=== PATIENT | female | born 1940 | race Caucasian/White ===

== ENCOUNTER 2025-04-13 23:06 | Inpatient (IN) | payer MEDICARE, OTHER, SELFPAY ==
--- NOTE | 2025-04-13 17:27 | ED.GENMED ---
History of Present Illness
General
Chief Complaint: Abdominal Symptoms
Time Seen by Provider: 04/13/25 17:27
History of Present Illness
History of Present Illness:
FOCUSED PAST MEDICAL HISTORY
- No old records available for review in [facility]
REVIEW OF OLD RECORDS
- No old records available for review in [facility]
Note:
CHIEF COMPLAINT(S)
Sudden onset of nausea, vomiting, and chills.
HISTORY OF PRESENT ILLNESS
The patient is an 84-year-old female with a history of htg-rvsjpmm-kydsadcjy diabetes mellitus. Approximately 10 minutes prior to calling emergency services, she experienced a sudden onset of nausea, vomiting, and chills. She was reported to have
been feeling fine throughout the day. Per the family, there were no other individuals in the home who were unwell. The patient also vomited prior to the arrival of EMS; the vomit did not contain any blood or coffee ground-like material but had some
blood partially, reportedly seen by a family member. On arrival, her oxygen saturation was at 90% without supplemental oxygen, which improved to 98% on 4 liters of oxygen. Upon evaluation in the facility, the patient was found to be febrile, with a
record temperature of 102.5�F. Physical examination noted some faint crackles at the left lung base, heard posteriorly, but no evidence of cellulitis was observed. A computed tomography (CT) scan of the chest was planned, and oral acetaminophen was
to be administered for fever management. The patient primarily speaks Ugandan, and further discussion with the family was pending their arrival.
ADDITIONAL HISTORY OBTAINED FROM SOURCES OTHER THAN THE PATIENT
According to the family, the patient had sudden onset symptoms about 10 minutes prior to calling for emergency assistance. EMS documented some blood partially observed in the vomit but confirmed no coffee ground-like material.
CHRONIC MEDICAL CONDITIONS SIGNIFICANTLY AFFECTING CARE
Rmy-xczdxdi-pyvxlkiyf diabetes mellitus.
REVIEW OF SYSTEMS
- General: Sudden onset of chills. Febrile.
- Respiratory: Shortness of breath with initial low oxygen saturation.
- Gastrointestinal: Nausea and vomiting without coffee ground-like material but with partial blood, as per family.
PHYSICAL EXAM
General: Alert, appears generally weak and debilitated but does not necessarily appear uncomfortable
Skin: Warm, dry, no evidence of cellulitis.
Head: Normocephalic, atraumatic.
Neck: Supple, trachea midline.
Eyes, Ears, Nose, and Throat: Oral mucosa moist.
Cardiovascular: Normal peripheral perfusion, No edema.
Respiratory: Respirations are non-labored, faint crackles at the left lung base heard posteriorly.
Gastrointestinal: Abdomen nondistended. Soft abdomen.
Back: Normal range of motion, normal alignment.
Musculoskeletal: Normal range of motion, normal strength.
Neurological: No focal neurologic deficit, moving all extremities, she was able to walk with assistance to the bedside commode
Psychiatric: Cooperative, appropriate mood and affect.
PLAN
- Order a CT scan of the chest to assess for any underlying pathology.
- Administer oral acetaminophen to manage fever.
- Monitor oxygen saturation and adjust supplemental oxygen as needed.
DIFFERENTIAL DIAGNOSIS
The Differential Diagnosis includes, in no particular order and is not limited to:
1. Pneumonia
2. Acute bronchitis
3. Urinary tract infection
4. Gastroenteritis
5. Sepsis
6. Heart failure exacerbation
7. Pulmonary embolism
8. Acute coronary syndrome
9. Viral infection
10. Aspiration pneumonia
Disposition:
SUMMARY OF ENCOUNTER
The patient, an 84-year-old female with a history of zkh-grnjbsk-uqyxztxsg diabetes mellitus, presented to the emergency department with a sudden onset of nausea, vomiting, and chills. Upon arrival, she was found to be febrile with a temperature of
102.5�F. Initial oxygen saturation was 88% on room air, which improved to 97% with supplemental oxygen at 2 meters. The patient had two episodes of diarrhea earlier in the day, followed by sudden vomiting and chills in the late afternoon. There were
faint crackles noted in the left lung base, prompting the need for a chest x-ray to assess for possible pneumonia or other respiratory pathology. A urine sample was requested to rule out a urinary tract infection.
ASSESSMENT
The patient is experiencing symptoms that could be due to an infectious process, possibly pneumonia, gastroenteritis, or a urinary tract infection, given the fever, chills, gastrointestinal symptoms, and respiratory findings.
PLAN
Order a chest x-ray and obtain a urine sample. Continue to monitor the patients oxygen saturation and adjust supplemental oxygen as needed. Administer acetaminophen to manage fever.
INDEPENDENT REVIEW OF LABS AND INTERPRETATION OF TESTS
My independent review of the patients vital signs indicates fever and initial low oxygen saturation, suggesting a possible infection or respiratory issue.
PATIENT EDUCATION AND COUNSELING
The patients family was informed about her fever and potential causes of her symptoms. They were advised on the importance of monitoring the patients condition and reporting any worsening symptoms.
MEDICAL DECISION MAKING
-Complexity of Data Reviewed: Chronic conditions affecting care include dvf-dlvzexl-kdkzmvkwt diabetes mellitus. Differential diagnosis includes pneumonia, acute bronchitis, urinary tract infection, gastroenteritis, sepsis, heart failure
exacerbation, pulmonary embolism, acute coronary syndrome, viral infection, and aspiration pneumonia.
-Data:
Category 1: Clinical information was obtained from an independent historian.
Category 2: My independent interpretation is pending due to awaiting chest x-ray results.
DIAGNOSIS
1. Fever, unspecified (ICD-10: R50.9)
2. Vomiting, unspecified (ICD-10: R11.10)
3. Shortness of breath (ICD-10: R06.02)
RADIOLOGY
- CAT scan of the abdomen pelvis shows moderate biliary and gallbladder distention with signs of mild acute ileocolitis
LABS
- COVID-negative, urinalysis no UTI, lactic 1.3, sodium slightly low at 127 and of note patient on hydrochlorothiazide, white count 8.5, hemoglobin 9.8
The patient is somewhat ill-appearing. She arrived febrile after having episodes of diarrhea than vomiting. She currently has no abdominal pain but continues to feel weak. She remains tachycardic. Tylenol was given for the fever and she was also
given IV fluids. We also gave Zofran. Chest x-ray shows some mild diffuse ground glass opacities and she was hypoxic as low as 88% on room air however did not read shortness of breath. CT imaging showed moderate biliary and gallbladder distention
of uncertain significance. COVID and flu negative. Lactic normal. Blood cultures pending. She was unable to provide a clean stool specimen as the specimen was mixed with urine.
Phy Exam
Physical Exam
Physical Exam:
See HPI
Sepsis
Sepsis Screening
Sepsis Assessment: Sepsis
Sepsis Screen
Sepsis Screen: Sepsis
Date: 04/13/25
Time: 22:58
Course
Orders/Labs/Results
Orders:
Orders
04/13/25 17:32
Straight cath- Treatment ONCE
0.9% Sodium Chloride 500 ml [Nss] 500 ml IV BOLUS
Acetaminophen [Tylenol] 1,000 mg PO NOW STA
04/13/25 17:36
EKG [Electrocardiogram (*1)] Urgent
Reason for Study: Tachycardia
EKG- Treatment ONCE
04/13/25 17:51
COVID-19 Antigen Urgent
Source: Nasal Swab
Urinalysis Reflex To Culture Urgent
Date Specimen was Collected: 04/13/25
Time Specimen was Collected: 17:50
Urine Microscopic Reflex Cult Urgent
Influenza A+B Rapid Molecular Urgent
KIKA Source: Nasal Swab
Specimen Description:
04/13/25 18:07
Blood Culture Q30M
KIKA Source: Blood/Venous
Specimen Description:
04/13/25 18:09
Complete Blood Count/With Diff Urgent
Lactic Acid Q4H
Comment: CANCEL 2nd LACTIC ACID IF 1st LACTIC ACID IS LESS THAN 2
Blood Culture Q30M
KIKA Source: Blood/Venous
Specimen Description:
04/13/25 18:47
Basic Metabolic Panel Urgent
Lipase Urgent
Comment: ADD ON
04/13/25 19:59
CR Chest - 2 Views Urgent
Comment:
Reason For Exam: fever
04/13/25 20:00
CT Abd/pelvis W Iv Cont Urgent
Comment:
Reason For Exam: vomit fever
04/13/25 21:15
Add On- LAB Urgent
Tests Added?: LFTs and lipase
04/13/25 22:03
STOOL [C difficile Antigen & Toxins] Urgent
KIKA Source: Feces/Stool
Specimen Description:
Stool Culture Urgent
KIKA Source: Feces/Stool
Specimen Description:
04/13/25 22:06
Ondansetron Injectable [Zofran] 4 mg IV NOW STA
04/13/25 22:44
Pgiso-Igfw-Okbsoml Urgent
04/13/25 22:49
Norovirus by PCR Routine
KIKA Source: Feces/Stool
Specimen Description:
Abnormal Lab Results
04/13/25 04/13/25 04/13/25
17:51 18:09 18:47
RBC 3.54 L 10^6/uL
(4.20-5.40)
Hgb 9.8 L g/dL
(12.0-16.0)
Hct 30.0 L %
(37.0-47.0)
MCHC 32.7 L g/dL
(33.0-37.0)
MPV 12.2 H fL
(7.4-10.4)
Abs Immat Gran (auto) 0.1 H 10^3/uL
(0-0.05)
Absolute Neuts (auto) 7.4 H 10^3/uL
(1.4-6.5)
Absolute Lymphs (auto) 0.3 L 10^3/uL
(1.2-3.4)
Absolute Monos (auto) 0.7 H 10^3/uL
(0.1-0.6)
Immature Gran % 1.3 H %
(0-0.5)
Neutrophils % 86.6 H %
(42.2-75.2)
Lymphocytes % 3.8 L %
(20.5-51.1)
Sodium 127 L mmol/L
(135-145)
Chloride 96 L mmol/L
(98-107)
BUN 25 H mg/dl
(7-17)
Glucose 150 H mg/dl
(70-99)
Urine Bacteria (Reflex) Few A
(Negative)
Urine Albumin (Reflex) 1+ A
(Neg - Trace)
04/13/25 18:09
04/13/25 18:47
Vital Signs
Initial and Last Documented VS:
Initial Vital Signs
Temp Pulse Resp BP Pulse Ox
39.1 C H 113 16 157/68 93
04/13/25 17:29 04/13/25 17:29 04/13/25 17:29 04/13/25 17:29 04/13/25 17:29
Last Documented Vital Signs
Temp Pulse Resp BP Pulse Ox
37.7 C 112 27 156/59 96
04/13/25 20:02 04/13/25 20:00 04/13/25 18:45 04/13/25 18:00 04/13/25 20:00
*Pulse Oximetry
Patient hypoxic: yes (As low as 88% on room air)
*Critical Care Note
Total Time (30-74mins, 75-104mins- exclusive of procedures): Not Applicable
ED Attending Note
-
Portions of this chart may have been created with voice recognition software.� Occasional wrong word or��sound alike� substitutions may have occurred due to the inherent limitations of voice recognition software.
Discharge Plan
Departure
Patient Disposition: Admit
Date of Disposition: 04/13/25
Time of Disposition: 22:07
Presentation/result/management discussed w/ accepting MD/DO: Hospitalist
Discharge Problem:
SIRS (systemic inflammatory response syndrome)
Prescriptions:
No Action
metformin 500 mg tablet
500 mg PO BID
atenolol 25 mg tablet
25 mg PO DAILY
meclizine 12.5 mg tablet
12.5 mg PO DAILY
aspirin 81 mg tablet,delayed release (DR/EC)
81 mg PO DAILY
magnesium oxide 400 mg (241.3 mg magnesium) tablet
400 mg PO DAILY
amlodipine 10 mg tablet
10 mg PO DAILY
ferrous sulfate [FeroSul] 325 mg (65 mg iron) tablet
325 mg PO DAILY
valsartan 320 mg tablet
320 mg PO DAILY
hydrochlorothiazide 12.5 mg capsule
12.5 mg PO DAILY
doxazosin 2 mg tablet
2 mg PO DAILY
rosuvastatin 20 mg tablet
20 mg PO DAILY
mirabegron [Myrbetriq] 25 mg tablet extended release 24 hr
25 mg PO DAILY
Referrals:
Nicolas St MD [Family Provider, Internal Medicine]
Interventions
Interventions:
*General Assessment Last Done: 04/13/25 18:19
*Neglect/Abuse Screening Last Done: 04/13/25 20:22
*ED- Fall Risk Assessment Last Done: 04/13/25 18:19
*ED COVID-19 Vaccine History Last Done: 04/13/25 18:19
*ED Influenza Vaccine History Last Done: 04/13/25 18:19
QE-Kredts-Dvdmcgnfkc Assessment Last Done: 04/13/25 18:19
Discharge Date and Time
Print Language: Ugandan
[2025-04-13 17:29] VITALS: BP 157/68
[2025-04-13 17:34] VITALS: BP 157/68
[2025-04-13 17:59] LABS: Urine Character Clear (Clear)
[2025-04-13 18:00] VITALS: BP 156/59
[2025-04-13] MEDS: TYLENOL 1000 MG PO (18:02)
[2025-04-13 18:05] LABS: Urine Squamous Cell 16-20 /LPF (Few)
[2025-04-13 18:06] LABS: Urine Red Blood Cell 0-2 /HPF (0-2)
[2025-04-13] MEDS: NSS 500 IV (18:15)
[2025-04-13 18:18] VITALS: BMI 33.7
[2025-04-13 18:22] LABS: Hematocrit 30.0 % (37.0-47.0); Hemoglobin 9.8 g/dL (12.0-16.0); Mean Corp Hgb Conc. 32.7 g/dL (33.0-37.0); Mean Corpuscular Volume 84.7 fL (81.0-99.0); Nucleated Red Blood Cells % 0 %; Platelet Count 166 10^3/uL (130-400); Red Cell Dist. Width 14.1 % (11.5-14.5)
[2025-04-13 18:27] LABS: COVID-19 Antigen Negative (Negative)
[2025-04-13 19:18] LABS: Blood Urea Nitrogen 25 mg/dl (7-17); Calcium 9.1 mg/dl (8.4-10.2); Carbon Dioxide 25 mmol/L (22-30); Chloride 96 mmol/L (98-107); Estimated Creatinine Clearance 56 ml/min; Glucose 150 mg/dl (70-99); Sodium 127 mmol/L (135-145); eGFR > 60.00
[2025-04-13 20:00] VITALS: BP 140/64
[2025-04-13 21:45] LABS: Lipase 34 U/L (23-300)
--- NOTE | 2025-04-13 22:15 | HPS.HSE ---
Addendum entered and electronically signed by Mildred Rosenbaum MD 04/13/25 23:00:
This is an addendum to the H&P written by she was 04/13/25. �Patient seen and examined independently with [facility].
84-year-old female past medical history of diabetes, hypercholesteremia, hypertension, presenting with sudden onset of diarrhea, nausea, vomiting and chills. �No abdominal pain. O2 sats was 90% which improved to 98% on 1 L oxygen per EMS. �She was
found to be febrile with temperature 102.5.
Vital signs show temperature of 102.3. �Tachycardia up to 117.
Labs show hemoglobin 9.8. �Sodium 127.
CT abdomen pelvis shows moderate biliary and gallbladder distention. �Mild acute ileocolitis. �Severe diverticulosis. �Chest x-ray shows mild diffuse ground glass opacity throughout the lungs possibly atelectasis versus interstitial pneumonitis.
COVID and flu are negative.
Patient with sepsis secondary to acute ileocolitis as well as also inflammatory interstitial pneumonitis with resulting hypoxemia. �Possible that she aspirated.
Check stool studies, norovirus, cdif. �Check blood cultures. �IV fluids. �Zosyn.
Hyponatremia secondary to hypovolemia. �Continue to monitor with IV fluids.
Original Note:
Family Physician
-
Family Physician: Nicolas St
Chief Complaint
-
n/v/d
History of Present Illness
84-year-old female with a history of srj-ivdvgqy-dmijruoqm diabetes mellitus, HTn, HLD presented to us with watery loose diarrhea times two this morning. they did not notice any blood in the stool. towards the evenings she vomited the food she ate.
it was non bloody vomit. patient was noted with shaking chills. denied fever at home. patient gets meals on wheals at home. denied PUGH, dizzy or syncope. denied chest pain, sob. denied abdominal pain,n,v,d. denied dysuria or hematuria
upon arrival she was noted hypoxic requiring 1l of oxygen. she was also noted to have temp of 102.3. CT concerning for colitis. admitting for further management.
Medical History
Past Medical History
Past Medical History: Reports Other
Additional Past Medical History:
type 2 DM, HTN, HLD,
Past Surgical History: Reports Other
Additional Past Surgical History:
right breast lump removed.
Social History
Tobacco: Non-smoker
Alcohol: None
Drug: None
Living: With Family
Family History
Family History: Not pertinent
Allergies / Home Medications
Allergies reflects when Allergies were last updated in [facility].
Home Medications with original date entered in [facility]
Allergy/Medication List:
Allergies
Allergy/AdvReac Type Severity Reaction Status Date / Time
No Known Allergies Allergy Verified 04/13/25 17:50
Home Medications
amlodipine 10 mg tablet 10 mg PO DAILY 04/13/25
aspirin 81 mg tablet,delayed release 81 mg PO DAILY 04/13/25
atenolol 25 mg tablet 25 mg PO DAILY 04/13/25
doxazosin 2 mg tablet 2 mg PO DAILY 04/13/25
ferrous sulfate 325 mg (65 mg iron) tablet (FeroSul) 325 mg PO DAILY 04/13/25
hydrochlorothiazide 12.5 mg capsule 12.5 mg PO DAILY 04/13/25
magnesium oxide 400 mg (241.3 mg magnesium) tablet 400 mg PO DAILY 04/13/25
meclizine 12.5 mg tablet 12.5 mg PO DAILY 04/13/25
metformin 500 mg tablet 500 mg PO BID 04/13/25
mirabegron 25 mg tablet,extended release 24 hr (Myrbetriq) 25 mg PO DAILY 04/13/25
rosuvastatin 20 mg tablet 20 mg PO DAILY 04/13/25
valsartan 320 mg tablet 320 mg PO DAILY 04/13/25
Review of Systems
-
Constitutional: Reports No Symptoms
EENT: Reports No Symptoms
Respiratory: Reports No Symptoms
Cardiac: Reports No Symptoms
Abdomen/GI: Reports Vomiting and Diarrhea
: Reports No Symptoms
Musculoskeletal: Reports No Symptoms
Skin: Reports No Symptoms
Neurological: Reports No Symptoms
Endocrine: Reports No Symptoms
Hematologic/Lymphatic: Reports No Symptoms
Psych: Reports No Symptoms
Physical Exam
Vital Signs
Vital Signs
Temp Pulse Resp BP Pulse Ox
99.8 F 112 27 156/59 96
04/13/25 20:02 04/13/25 20:00 04/13/25 18:45 04/13/25 18:00 04/13/25 20:00
Physical Exam
General: Well Developed, Well Nourished and No Apparent Distress
HEENT: NormoCephalic, Moist mucous membranes and Atraumatic
Respiratory: Clear
Cardiac: S1/S2 and Regular Rhythm; No Murmur or Rub
GI: Soft, Non Tender, Non Distended and Normal Bowel Sounds; No Organomegaly
Rectal: Deferred by Provider
Musculoskeletal: No Clubbing, No Cyanosis and No Edema
Skin: No Rash
Neuro: AO x 3 and Nonfocal/grossly intact
Psych: Calm
Laboratory Results
-
04/13/25 18:09
04/13/25 18:47
Laboratory Results
Lactic Acid Cancelled 04/13/25 21:45
Total Bilirubin Cancelled 04/13/25 18:47
AST Cancelled 04/13/25 18:47
ALT Cancelled 04/13/25 18:47
Alkaline Phosphatase Cancelled 04/13/25 18:47
Lipase 34 U/L (23-300) 04/13/25 18:47
Data Reviewed
-
CT Scan: Report Reviewed by me
Lab Data: Labs Reviewed by me
Impression/Plan
-
#diarrhea,vomiting, fever concern for colitis
-UA negative
-COVID negative
-stool for culture and c diff, norovirus
-iv zosyn
-clear liquid diet, advance as tolerated
-CT abdomen pelvis with . Moderate biliary and gallbladder distention.
2. Mild acute ileocolitis (either infectious or inflammatory in etiology).
3. Severe diverticulosis in the sigmoid colon.
4. Moderate chronic bilateral renal disease.
5. Severe calcific atherosclerotic plaque in the abdominal aorta and common iliac arteries.
6. Small hiatal hernia.
7. Severe multilevel discogenic degenerative disease.
8. Previous right breast lumpectomy.
-chest x ray with Mild diffuse ground-glass opacity throughout the lungs. Diagnostic possibilities are (1) multifocal subsegmental atelectasis, (2) less likely an inflammatory interstitial pneumonitis, (3) less likely viral pneumonia.
2. Mildly to moderately decreased bilateral lung volumes.
3. Calcific atherosclerotic plaque in the coronary arteries and thoracic aorta.
4. Severe multilevel discogenic degenerative disease.
#acute hypoxia likely from aspiration
-oxygenating very well on RA
-consider weaning as tolerated
#anemia likely iron def
-hgb 9.8, no active bleeding
-ctm
-ferrous sulfate continued
#hyponatremia likely hypovolemic
-na 127
-fluids continued
-BMP in Am
#essential HTN
-Norvasc,atenolol, doxazosin,valsartan continued with hold parameter
-hold hctz
#type 2 DM
-sliding scale
-hold metformin
#HLD
-statin
#DVT prophylaxis
-Lovenox
#CODE status
-full code
[2025-04-13] MEDS: ZOFRAN 4 MG IV (22:33)
[2025-04-13 23:08] LABS: ALT (SGPT) 15 U/L (0-35); AST (SGOT) 19 U/L (14-36); Albumin 4.2 g/dl (3.5-5.0); Alkaline Phosphatase 60 U/L (38-126); Total Protein 6.7 g/dl (6.3-8.2)
[2025-04-13] MEDS: ZOSYN 50 IV (23:43)
[2025-04-13] MEDS: TYLENOL 650 MG PO (23:45)
[2025-04-13 23:53] VITALS: BP 121/51
[2025-04-13] MEDS: NSS 1000 IV (23:57)
[2025-04-14] VITALS (12 sets, daily range): BP systolic 102–139; BP diastolic 45–68; BMI 31.8
[2025-04-14 00:55] LABS: Glucose - Point of Care 158 mg/dl (70-99)
[2025-04-14] MEDS: ZOSYN 50 IV ×4 (06:33→23:22)
[2025-04-14 06:38] LABS: Hematocrit 30.1 % (37.0-47.0); Hemoglobin 9.8 g/dL (12.0-16.0); Mean Corp Hgb Conc. 32.6 g/dL (33.0-37.0); Mean Corpuscular Volume 87.2 fL (81.0-99.0); Platelet Count 158 10^3/uL (130-400); Red Cell Dist. Width 14.2 % (11.5-14.5)
[2025-04-14 07:05] LABS: Blood Urea Nitrogen 23 mg/dl (7-17); Calcium 8.6 mg/dl (8.4-10.2); Carbon Dioxide 25 mmol/L (22-30); Chloride 101 mmol/L (98-107); Estimated Creatinine Clearance 39 ml/min; Glucose 129 mg/dl (70-99); Potassium 4.5 mmol/L (3.5-5.1); Sodium 133 mmol/L (135-145); eGFR 54.87
[2025-04-14] MEDS: NOVOLOG FLEXPEN-LOW RESISTANCE SC ×3 (08:08→16:26)
[2025-04-14] MEDS: DIOVAN 320 MG PO (08:11)
[2025-04-14] MEDS: MAGNESIUM OXIDE 400 MG PO (08:12)
[2025-04-14] MEDS: ANTIVERT 12.5 MG PO (08:12)
[2025-04-14] MEDS: ASPIR LOW (ENTERIC COATED) 81 MG PO (08:12)
[2025-04-14] MEDS: FEOSOL 325 MG PO (08:12)
[2025-04-14] MEDS: NORVASC 10 MG PO (08:12)
[2025-04-14] MEDS: TYLENOL 650 MG PO (08:33)
--- NOTE | 2025-04-14 09:26 | W.PN.HOSP.TC ---
Addendum entered and electronically signed by Jasvir Knight MD 04/14/25 09:41:
Chronic normocytic anemia.
Check iron level
Follow hemoglobin with hydration
Original Note:
Today's Communication/Plan
-
BNP
US of the abdomen
LFT
Blood culture
Stool culture and stool for C. difficile
Attempt to wean off oxygen
Full liquid diet
Empiric antibiotics pending culture data
Assessment / Plan
Assessment / Plan
Impression
Presentation with acute onset of nausea, vomiting, abdominal discomfort, chills and rigors
Concern for evolving sepsis possibly GI source.
Ileocolitis
Acute hypoxic respiratory insufficiency
Bilateral ground glass opacity with concern for aspiration
Hyponatremia secondary to hypovolemia
Other conditions
Essential hypertension
Dyslipidemia
Diabetes type 2
Obesity due to excessive calories
Plan
Concern for evolving sepsis given possible GI source given presentation with acute onset of nausea vomiting, abdominal discomfort chills and rigors.
Remains with diarrheal stools
Abdominal examination benign with no tenderness
Normal white count with left shift
Normal LFTs.
CT of the abdomen pelvis with IV contrast totally findings consistent with ileocolitis. Distended gallbladder without apparent evidence of acute cholecystitis. CBD 8.3 mm
UA unremarkable
COVID flu negative
Repeat LFT
US of the abdomen
Blood cultures pending
Stool cultures and stool for C. difficile toxin
Empiric antibiotics initiated in the ED: Zosyn continue pending cultures
Full liquid diet
Acute hypoxic respiratory insufficiency pulse ox 89% on room air improved with nasal cannula oxygenation.
No evidence for respiratory distress.
Exam with clear lungs.
Chest x-ray with bilateral interstitial/ground glass opacities
Concern for aspiration after episode of emesis.
Denies prior history of CHF. Check pro CHF BNP.
Continue aspiration precautions
Attempt to wean off oxygen.
Hypovolemic hyponatremia
Sodium improved to 127�133 with IV fluid bolus
Observe oral intake
Wean off IV fluids.
Hold HCTZ
Essential hypertension
Patient denies any history of ASCVD/CHF
Prior CHF BNP pending
Continue amlodipine, atenolol, doxazosin, valsartan
Continue aspirin
Hold HCTZ
Type 2 diabetes
Hemoglobin A1c pending.
Basal bolus protocol.
Serial Accu-Cheks
Anticipated Discharge: 24 - 48 hours
Subjective/Interval History
-
Date of Service: April 14, 2025
Objective Data
-
Labs:
Laboratory Results
04/13/25 04/14/25
22:44 06:19
WBC 8.2
Hgb 9.8 L
Hct 30.1 L
Plt Count 158
Sodium 133 L
Potassium 4.5
Chloride 101
Carbon Dioxide 25
BUN 23 H
Creatinine 1.0
Glucose 129 H
Calcium 8.6
Total Bilirubin 0.7
AST 19
ALT 15
Alkaline Phosphatase 60
Vital Signs:
Vital Signs
Temp Pulse Resp BP Pulse Ox
100.2 F 100 26 124/53 98
04/14/25 08:23 04/14/25 06:30 04/14/25 06:30 04/14/25 05:30 04/14/25 06:30
Physical Exam
-
General: Well Developed and No Apparent Distress
HEENT: Normocephalic, Atraumatic and Moist Mucous Membranes
Respiratory: Clear to Auscultation
Cardiac: Regular Rhythm and S1/S2; Negative Murmur, Rub or Gallop
GI: Soft, Nontender, Nondistended and Normal Bowel Sounds; Negative Organomegaly
Rectal: Deferred by Provider
Musculoskeletal: No Clubbing, No Cyanosis and No Edema
Skin: Negative Rash
Neuro: Nonfocal/Grossly Intact
[2025-04-14] MEDS: TENORMIN 25 MG PO (09:30)
[2025-04-14] MEDS: CRESTOR 20 MG PO (09:30)
[2025-04-14] MEDS: CARDURA 2 MG PO (09:30)
[2025-04-14 10:13] LABS: Glycohemoglobin (HgbA1c) 6.0 % (4.0-5.9)
[2025-04-14 10:51] LABS: ALT (SGPT) 16 U/L (0-35); AST (SGOT) 26 U/L (14-36); Albumin 4.2 g/dl (3.5-5.0); Alkaline Phosphatase 59 U/L (38-126); Total Protein 6.5 g/dl (6.3-8.2)
[2025-04-14 12:24] LABS: Glucose - Point of Care 134 mg/dl (70-99)
--- NOTE | 2025-04-14 14:33 | EDCM ---
CM reviewed chart and met with daughter bedside in ED. Pt is Libyan speaking. Lives with her daughter and her family in multistory home, 2 FERN, first floor bedroom and half bath, full flight to second floor full bath.
Needs assistance with ADLs and personal care, ambulates with RW. Also has commode, shower chair and wheelchair.
Currently on 5 L NC, does not have home O2.
Confirms prescription coverage.
hx [facility], no hx SNF.
PCP: Sanam Bucio
Pharm[facility]: [facility] [place]
CM will continue to follow for all discharge planning needs.
--- NOTE | 2025-04-14 15:00 | PTCARENOTE ---
pt transferred from ED AO x3 albanian speaking, datr at bedside. 4L via NC crackled to right base. abd roud obese. skin CDI no edema +pp b/l. bed alarm in place, oriented to surroundings. CB in reach- instructed on use.
[2025-04-14] MEDS: LOVENOX 40 MG SC (17:29)
[2025-04-15 01:54] LABS: Glucose - Point of Care 128 mg/dl (70-99)
[2025-04-15] MEDS: ZOSYN 50 IV ×2 (05:18→12:06)
[2025-04-15 06:30] LABS: Glucose - Point of Care 120 mg/dl (70-99)
[2025-04-15] MEDS: NOVOLOG FLEXPEN-LOW RESISTANCE SC ×2 (08:29→16:52)
[2025-04-15] MEDS: ANTIVERT 12.5 MG PO (08:30)
[2025-04-15] MEDS: FEOSOL 325 MG PO (08:30)
[2025-04-15] MEDS: ASPIR LOW (ENTERIC COATED) 81 MG PO (08:30)
[2025-04-15] MEDS: CRESTOR 20 MG PO (08:31)
[2025-04-15] MEDS: MAGNESIUM OXIDE 400 MG PO (08:31)
[2025-04-15] MEDS: TENORMIN PO (08:35)
[2025-04-15] MEDS: DIOVAN PO (08:35)
[2025-04-15] MEDS: NORVASC PO (08:35)
[2025-04-15] MEDS: CARDURA PO (08:35)
[2025-04-15 08:38] VITALS: BP 97/51
[2025-04-15 08:39] LABS: Hematocrit 27.0 % (37.0-47.0); Hemoglobin 8.4 g/dL (12.0-16.0); Mean Corp Hgb Conc. 31.1 g/dL (33.0-37.0); Mean Corpuscular Volume 89.1 fL (81.0-99.0); Platelet Count 136 10^3/uL (130-400); Red Cell Dist. Width 14.4 % (11.5-14.5)
[2025-04-15 09:46] LABS: Blood Urea Nitrogen 35 mg/dl (7-17); Calcium 8.5 mg/dl (8.4-10.2); Carbon Dioxide 25 mmol/L (22-30); Chloride 101 mmol/L (98-107); Estimated Creatinine Clearance 27 ml/min; Glucose 96 mg/dl (70-99); Potassium 4.1 mmol/L (3.5-5.1); Sodium 131 mmol/L (135-145); eGFR 36.64
[2025-04-15 11:46] LABS: Glucose - Point of Care 181 mg/dl (70-99)
[2025-04-15] MEDS: NOVOLOG FLEXPEN-LOW RESISTANCE 1 UNITS SC (12:24)
[2025-04-15 15:30] VITALS: BP 89/47
--- NOTE | 2025-04-15 15:38 | CM ---
Continues on O2 @ 2LPM via n/c. IV ABX stopped today. May need PT eval
Plan: TBD.
--- NOTE | 2025-04-15 16:41 | W.PN.HOSP.TC ---
Today's Communication/Plan
-
Observe off antibiotics
Low residue diet
Follow-up rest of the stool culture
Gentle diuresis
Attempt to wean off oxygen as tolerates
Hold most of the antihypertensive regimen avoiding hypotension
Assessment / Plan
Assessment / Plan
Impression
Presentation with acute onset of nausea, vomiting, abdominal discomfort, chills and rigors
Concern for evolving sepsis possibly GI source.
Ileocolitis
Acute hypoxic respiratory insufficiency
Bilateral ground glass opacity with concern for aspiration
Hyponatremia secondary to hypovolemia
Other conditions
Essential hypertension
Dyslipidemia
Diabetes type 2
Obesity due to excessive calories
Plan
Concern for evolving sepsis given possible GI source given presentation with acute onset of nausea vomiting, abdominal discomfort chills and rigors.
Remains with diarrheal stools
Abdominal examination benign with no tenderness
Normal white count with left shift
Normal LFTs.
CT of the abdomen pelvis with IV contrast totally findings consistent with ileocolitis. Distended gallbladder without apparent evidence of acute cholecystitis. CBD 8.3 mm
UA unremarkable
COVID flu negative
Repeat LFT within normal limits
US of the abdomen with no evidence of acute cholecystitis. CBD size 1.2 cm
Blood cultures negative today
Stool for C. difficile negative
Stool cultures pending
Loose stools, bright with improved frequency. Denies any abdominal pain
Discontinue Zosyn on 04/15
Advance to low residual diet
Acute hypoxic respiratory insufficiency pulse ox 89% on room air improved with nasal cannula oxygenation.
Suspect acute CHF preserved EF
Echocardiogram with LVEF 60-65%. No regional wall motion abnormalities. Normal RV size and function. No significant valvular abnormalities
Chest x-ray with bilateral interstitial/ground glass opacities
Concern for aspiration after episode of emesis.
Remains with significant supplemental oxygen requirements up to 2 L nasal cannula
Follow-up pro CHF BNP doubled over the last 24 hours.
Follow-up chest x-ray on 04/15 with worsening bilateral pulmonary edema.
Will provide gentle diuresis with Lasix 20 pg IV and follow response
Attempt to wean off oxygen
Hypovolemic hyponatremia
Sodium improved to 127�133 with IV fluid bolus
Observe oral intake
She has been off HCTZ since admission
YOSHI with creatinine 1.4
Check urine sodium
Monitor for contrast nephropathy.
Possibly cardiorenal state given acute pulmonary edema with rising creatinine while off diuretics
Monitor response to Lasix
Hold amlodipine, doxazosin, valsartan.
Continue atenolol with caution
Hold HCTZ
Essential hypertension
Continue amlodipine, atenolol, doxazosin, valsartan
Continue aspirin
Hold HCTZ
Type 2 diabetes
Hemoglobin A1c 6.0
Basal bolus protocol.
Serial Accu-Cheks
Anticipated Discharge: 24 - 48 hours
Subjective/Interval History
-
Date of Service: April 15, 2025
Objective Data
-
Labs:
Laboratory Results
04/15/25
07:55
WBC 8.8
Hgb 8.4 L
Hct 27.0 L
Plt Count 136
Sodium 131 L
Potassium 4.1
Chloride 101
Carbon Dioxide 25
BUN 35 H
Creatinine 1.4 H
Glucose 96
Calcium 8.5
Vital Signs:
Vital Signs
Temp Pulse Resp BP Pulse Ox
98.2 F 74 20 89/47 95
04/15/25 15:30 04/15/25 15:30 04/15/25 15:30 04/15/25 15:30 04/15/25 15:30
I&O
04/14/25 04/15/25 04/16/25
06:59 06:59 06:59
Intake Total 0 / 0
Balance 0 / 0
Physical Exam
-
General: Well Developed and No Apparent Distress
HEENT: Normocephalic, Atraumatic and Moist Mucous Membranes
Respiratory: Clear to Auscultation
Cardiac: Regular Rhythm and S1/S2; Negative Murmur, Rub or Gallop
GI: Soft, Nontender, Nondistended and Normal Bowel Sounds; Negative Organomegaly
Rectal: Deferred by Provider
Musculoskeletal: No Clubbing, No Cyanosis and No Edema
Skin: Negative Rash
Neuro: Nonfocal/Grossly Intact
[2025-04-15 16:47] LABS: Glucose - Point of Care 131 mg/dl (70-99)
[2025-04-15] MEDS: LASIX 20 MG IV (16:58)
[2025-04-15] MEDS: LOVENOX 40 MG SC (16:59)
[2025-04-15 21:20] LABS: Glucose - Point of Care 153 mg/dl (70-99)
[2025-04-15 23:44] VITALS: BP 132/62
[2025-04-16 07:22] VITALS: BP 118/56
[2025-04-16 08:16] LABS: Glucose - Point of Care 118 mg/dl (70-99)
[2025-04-16] MEDS: NOVOLOG FLEXPEN-LOW RESISTANCE SC ×3 (08:56→16:56)
[2025-04-16] MEDS: MAGNESIUM OXIDE 400 MG PO (09:00)
[2025-04-16] MEDS: ANTIVERT 12.5 MG PO (09:00)
[2025-04-16] MEDS: TENORMIN 25 MG PO (09:00)
[2025-04-16] MEDS: ASPIR LOW (ENTERIC COATED) 81 MG PO (09:01)
[2025-04-16] MEDS: CRESTOR 20 MG PO (09:01)
[2025-04-16] MEDS: FEOSOL 325 MG PO (09:01)
[2025-04-16 09:13] LABS: Hematocrit 27.1 % (37.0-47.0); Hemoglobin 8.6 g/dL (12.0-16.0); Mean Corp Hgb Conc. 31.7 g/dL (33.0-37.0); Mean Corpuscular Volume 90.3 fL (81.0-99.0); Platelet Count 141 10^3/uL (130-400); Red Cell Dist. Width 14.2 % (11.5-14.5)
[2025-04-16 09:40] LABS: Blood Urea Nitrogen 35 mg/dl (7-17); Calcium 9.0 mg/dl (8.4-10.2); Carbon Dioxide 29 mmol/L (22-30); Chloride 99 mmol/L (98-107); Estimated Creatinine Clearance 34 ml/min; Glucose 95 mg/dl (70-99); Potassium 4.0 mmol/L (3.5-5.1); Sodium 131 mmol/L (135-145); eGFR 48.94
[2025-04-16 12:10] LABS: Glucose - Point of Care 116 mg/dl (70-99)
[2025-04-16] MEDS: LASIX 40 MG IV (14:30)
[2025-04-16 15:19] VITALS: BP 150/77
--- NOTE | 2025-04-16 15:54 | W.PN.HOSP.TC ---
Today's Communication/Plan
-
Lasix
Attempt to wean off oxygen
Monitor for recurrent hypotension
Follow BMP
Physical therapy assessment
Assessment / Plan
Assessment / Plan
Impression
Presentation with acute onset of nausea, vomiting, abdominal discomfort, chills and rigors
Concern for evolving sepsis possibly GI source.
Ileocolitis
Acute hypoxic respiratory insufficiency
Bilateral ground glass opacity with concern for aspiration
Hyponatremia secondary to hypovolemia
Other conditions
Essential hypertension
Dyslipidemia
Diabetes type 2
Obesity due to excessive calories
Plan
Concern for evolving sepsis given possible GI source given presentation with acute onset of nausea vomiting, abdominal discomfort chills and rigors.
Remains with diarrheal stools
Abdominal examination benign with no tenderness
Normal white count with left shift
Normal LFTs.
CT of the abdomen pelvis with IV contrast totally findings consistent with ileocolitis. Distended gallbladder without apparent evidence of acute cholecystitis. CBD 8.3 mm
UA unremarkable
COVID flu negative
Repeat LFT within normal limits
US of the abdomen with no evidence of acute cholecystitis. CBD size 1.2 cm
Blood cultures negative today
Stool for C. difficile negative
Stool cultures pending
Loose stools, bright with improved frequency. Denies any abdominal pain
Discontinue Zosyn on 04/15
Advance to low residual diet
Acute hypoxic respiratory insufficiency pulse ox 89% on room air improved with nasal cannula oxygenation.
Suspect acute CHF preserved EF in the settings of longstanding hypertension and LVH
Echocardiogram with LVEF 60-65%. No regional wall motion abnormalities. Normal RV size and function. No significant valvular abnormalities
Chest x-ray findings consistent with pulmonary edema
Remains with significant supplemental oxygen requirements up to 2 L nasal cannula
Natruretic peptide doubled since admission and response to IV fluid bolus
Follow-up chest x-ray on 04/15 with worsening bilateral pulmonary edema.
Responding to diuresis with improved shortness of breath and renal function. This consistent with cardiorenal state.
Hypovolemic hyponatremia
Sodium improved to 127�133-131
Check TSH
She has been off HCTZ since admission
Monitor while on loop diuretics.
YOSHI with creatinine 1.4
Check urine sodium 43
Monitor for contrast nephropathy.
Possibly cardiorenal state given acute pulmonary edema with rising creatinine while off diuretics
Monitor response to Lasix
Hold amlodipine, doxazosin, valsartan.
Continue atenolol with caution
Hold HCTZ
Essential hypertension
Continue amlodipine, atenolol, doxazosin, valsartan
Continue aspirin
Hold HCTZ
Type 2 diabetes
Hemoglobin A1c 6.0
Basal bolus protocol.
She has been euglycemic while relatively decreased oral intake.
Stop Januvia given CHF.
Will consider SGLT2 inhibitor upon discharge if improved and stable renal function.
Anticipated Discharge: Within 24 hours
Subjective/Interval History
-
Date of Service: April 16, 2025
Objective Data
-
Labs:
Laboratory Results
04/16/25
08:20
WBC 7.2
Hgb 8.6 L
Hct 27.1 L
Plt Count 141
Sodium 131 L
Potassium 4.0
Chloride 99
Carbon Dioxide 29
BUN 35 H
Creatinine 1.1 H
Glucose 95
Calcium 9.0
Vital Signs:
Vital Signs
Temp Pulse Resp BP Pulse Ox
98.4 F 89 20 150/77 98
04/16/25 07:22 04/16/25 14:30 04/16/25 07:22 04/16/25 14:30 04/16/25 11:19
I&O
04/15/25 04/16/25 04/17/25
06:59 06:59 06:59
Intake Total 0 / 0 840 / 840
Balance 0 / 0 840 / 840
Physical Exam
-
General: Well Developed and No Apparent Distress
HEENT: Normocephalic, Atraumatic and Moist Mucous Membranes
Respiratory: Clear to Auscultation
Cardiac: Regular Rhythm and S1/S2; Negative Murmur, Rub or Gallop
GI: Soft, Nontender, Nondistended and Normal Bowel Sounds; Negative Organomegaly
Rectal: Deferred by Provider
Musculoskeletal: No Clubbing, No Cyanosis and No Edema
Skin: Negative Rash
Neuro: Nonfocal/Grossly Intact
[2025-04-16 16:56] LABS: Glucose - Point of Care 135 mg/dl (70-99)
[2025-04-16] MEDS: LOVENOX 30 MG SC (17:35)
[2025-04-16] MEDS: ZITHROMAX 500 MG PO (17:35)
[2025-04-16 19:12] LABS: TSH 1.08 uIU/ml (0.47-4.68)
[2025-04-16 21:26] LABS: Glucose - Point of Care 120 mg/dl (70-99)
[2025-04-16 23:37] VITALS: BP 138/63
[2025-04-17 06:00] VITALS: BMI 30.8
[2025-04-17 07:16] LABS: Hematocrit 28.4 % (37.0-47.0); Hemoglobin 9.1 g/dL (12.0-16.0); Mean Corp Hgb Conc. 32.0 g/dL (33.0-37.0); Mean Corpuscular Volume 87.9 fL (81.0-99.0); Platelet Count 159 10^3/uL (130-400); Red Cell Dist. Width 13.9 % (11.5-14.5)
[2025-04-17 07:46] LABS: Blood Urea Nitrogen 33 mg/dl (7-17); Calcium 9.2 mg/dl (8.4-10.2); Carbon Dioxide 32 mmol/L (22-30); Chloride 99 mmol/L (98-107); Estimated Creatinine Clearance 37 ml/min; Glucose 97 mg/dl (70-99); Potassium 3.7 mmol/L (3.5-5.1); Sodium 139 mmol/L (135-145); eGFR 54.87
[2025-04-17 08:00] VITALS: BP 153/70
--- NOTE | 2025-04-17 09:11 | W.PN.HOSP.TC ---
Today's Communication/Plan
-
see PN
Assessment / Plan
Assessment / Plan
84yo F with PMHX of breast CA s/p R lumpectomy, HTN, SHAWN, DM. HLD, ASCVD came with fever, chills, vomiting and diarrhea, found campylobacter in stool, improved, also managed for hypoxia and CHF exacerbation, responded well to Lasix.
A/P:
#Possible sepsis on admission 2/[address] with circumferential wall thickening in the terminal ileum
Azithromycin x3 days (QTc WNL)
improving
#Acute hypoxic respratory insufficiency 2/2 Acute on chronic HFpEF exacerbation
#Pulmonary edema
Lasix, daily weight, Cr and electrolytes
Echo: EF 60-65%, concentric left ventricular hypertrophy. Stage I diastolic dysfunction suggestive of abnormal relaxation.
Weaned off O2
#Hypovolemic hyponatremia
resolved
TSH WNL
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
Cr improved on Lasix
#Anemia
Outpatient w/u with PCP recommeded
#EssentiaL HTN
avoid hypotension
titrate BP to target
#DM type 2 with unspecified complications
Insulin SS, Accuchecks and DM diet
HgbA1c 6.0%
switch Januvia to Jardiance upon D/C
#moderate diffuse intrahepatic biliary dilatation, moderate gallbladder distention, and moderate extrahepatic biliary dilatation
US: No sonographic findings suspicious for acute cholecystitis. Dilation of the common bile duct up to 1.2 cm as seen on previous CT. Mild intrahepatic biliary dilation as seen on previous CT.
Outpatient MRCP advised
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
Diverticulosis w/o diverticulitis
high fiber diet
#DJD
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
no neurological deficit
#ASCVD
cotn hoem emds
DVT ppx lovenox
Full code
I have spent at least 58min reviewing chart, test results and providing direct patient care
Anticipated Discharge: Within 24 hours
Subjective/Interval History
-
Date of Service: April 17, 2025
Objective Data
-
Labs:
Laboratory Results
04/17/25
06:51
WBC 5.0
Hgb 9.1 L
Hct 28.4 L
Plt Count 159
Sodium 139 D
Potassium 3.7
Chloride 99
Carbon Dioxide 32 H
BUN 33 H
Creatinine 1.0
Glucose 97
Calcium 9.2
Vital Signs:
Vital Signs
Temp Pulse Resp BP Pulse Ox
97.6 F 82 20 153/70 93
04/17/25 08:00 04/17/25 08:00 04/17/25 08:00 04/17/25 08:00 04/17/25 08:00
I&O
04/16/25 04/17/25 04/18/25
06:59 06:59 06:59
Intake Total 840 / 840 480 / 480
Balance 840 / 840 480 / 480
Review of Systems
-
History Source: Patient
All other systems: Reviewed and negative
Physical Exam
-
General: No Apparent Distress
HEENT: Normocephalic
GI: Soft, Nontender and Nondistended
Skin: Warm
Neuro: Awake, Alert, Oriented and AO x 3
Psych: Calm
[2025-04-17 09:17] LABS: Glucose - Point of Care 125 mg/dl (70-99)
[2025-04-17] MEDS: NOVOLOG FLEXPEN-LOW RESISTANCE SC ×2 (09:53→16:52)
[2025-04-17] MEDS: TENORMIN 25 MG PO (10:24)
[2025-04-17] MEDS: ASPIR LOW (ENTERIC COATED) 81 MG PO (10:25)
[2025-04-17] MEDS: MAGNESIUM OXIDE 400 MG PO (10:25)
[2025-04-17] MEDS: FLUSH (NSS) 1 FLUSH IV (10:25)
[2025-04-17] MEDS: FEOSOL 325 MG PO (10:25)
[2025-04-17] MEDS: ANTIVERT 12.5 MG PO (10:25)
[2025-04-17] MEDS: ZITHROMAX 500 MG PO (10:25)
[2025-04-17] MEDS: CRESTOR 20 MG PO (10:25)
[2025-04-17] MEDS: LASIX 20 MG PO (10:27)
[2025-04-17 11:42] LABS: Glucose - Point of Care 159 mg/dl (70-99)
[2025-04-17] MEDS: NOVOLOG FLEXPEN-LOW RESISTANCE 1 UNITS SC (13:03)
[2025-04-17 15:21] VITALS: BP 127/64; PULSE 67; O2SAT 94
[2025-04-17 15:22] VITALS: BP 127/64; PULSE 67; O2SAT 94
[2025-04-17 16:09] VITALS: BP 138/59
[2025-04-17 16:36] LABS: Glucose - Point of Care 136 mg/dl (70-99)
[2025-04-17] MEDS: LOVENOX 30 MG SC (17:24)
[2025-04-17 21:21] LABS: Glucose - Point of Care 135 mg/dl (70-99)
[2025-04-17 23:30] VITALS: BP 148/69
[2025-04-18 06:00] VITALS: BMI 30.4
[2025-04-18 07:30] VITALS: BP 165/68
[2025-04-18 07:34] LABS: Glucose - Point of Care 155 mg/dl (70-99)
[2025-04-18] MEDS: NOVOLOG FLEXPEN-LOW RESISTANCE 1 UNITS SC (07:59)
[2025-04-18] MEDS: ANTIVERT 12.5 MG PO (08:00)
[2025-04-18] MEDS: CRESTOR 20 MG PO (08:00)
[2025-04-18] MEDS: ASPIR LOW (ENTERIC COATED) 81 MG PO (08:00)
[2025-04-18] MEDS: MAGNESIUM OXIDE 400 MG PO (08:01)
[2025-04-18] MEDS: FEOSOL 325 MG PO (08:01)
[2025-04-18] MEDS: FLUSH (NSS) 1 FLUSH IV (08:03)
[2025-04-18] MEDS: LASIX 20 MG PO (08:05)
[2025-04-18] MEDS: TENORMIN 25 MG PO (08:05)
[2025-04-18] MEDS: NORVASC 5 MG PO (09:35)
[2025-04-18] MEDS: ZITHROMAX 500 MG PO (09:35)
--- NOTE | 2025-04-18 10:17 | W.PN.HOSP.TC ---
Addendum entered and electronically signed by Thor Barger MD 04/18/25 10:30:
Attempted to call daughter - no responce
Original Note:
Today's Communication/Plan
-
dc
Assessment / Plan
Assessment / Plan
84yo F with PMHX of breast CA s/p R lumpectomy, HTN, SHAWN, DM. HLD, ASCVD came with fever, chills, vomiting and diarrhea, found campylobacter in stool, improved, also managed for hypoxia and CHF exacerbation, responded well to Lasix. DIarrhea
resolved after Azithromycin course. Not hypoxic on RA. PT recommended d/c home. Medcially stable for d/c. Amlodipine decreased upon d/c. New lasix instead of HCTZ and BMP in 1 week upon d/c. Outpatient MRCP and anemia w/u advised
A/P:
#Possible sepsis on admission 2/[address] with circumferential wall thickening in the terminal ileum
Azithromycin x3 days (QTc WNL)
improving
#Acute hypoxic respiratory insufficiency 2/2 Acute on chronic HFpEF exacerbation
#Pulmonary edema
Lasix, daily weight, Cr and electrolytes
Echo: EF 60-65%, concentric left ventricular hypertrophy. Stage I diastolic dysfunction suggestive of abnormal relaxation.
Weaned off O2
#Hypovolemic hyponatremia
resolved
TSH WNL
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
Cr improved on Lasix
#Anemia
Outpatient w/u with PCP recommended
#EssentiaL HTN
avoid hypotension
titrate BP to target
#DM type 2 with unspecified complications
Insulin SS, Accuchecks and DM diet
HgbA1c 6.0%
switch Januvia to Jardiance upon D/C
#moderate diffuse intrahepatic biliary dilatation, moderate gallbladder distention, and moderate extrahepatic biliary dilatation
US: No sonographic findings suspicious for acute cholecystitis. Dilation of the common bile duct up to 1.2 cm as seen on previous CT. Mild intrahepatic biliary dilation as seen on previous CT.
Outpatient MRCP advised
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
Diverticulosis w/o diverticulitis
high fiber diet
#DJD
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
no neurological deficit
#ASCVD
cotn hoem emds
DVT ppx lovenox
Full code
I have spent at least 36min reviewing chart, test results and providing direct patient care
Anticipated Discharge: Today
Subjective/Interval History
-
Date of Service: April 18, 2025
Objective Data
-
Vital Signs:
Vital Signs
Temp Pulse Resp BP Pulse Ox
97.7 F 61 18 152/61 93
04/18/25 07:30 04/18/25 09:35 04/18/25 07:30 04/18/25 09:35 04/18/25 07:30
I&O
04/17/25 04/18/25 04/19/25
06:59 06:59 06:59
Intake Total 480 / 480 960 / 960
Balance 480 / 480 960 / 960
Review of Systems
-
History Source: Patient
All other systems: Reviewed and negative
Physical Exam
-
General: No Apparent Distress
HEENT: Normocephalic
Respiratory: Clear to Auscultation
Cardiac: Regular Rhythm
Musculoskeletal: No Clubbing, No Cyanosis and No Edema
Neuro: Awake, Alert, Oriented and AO x 3
Psych: Calm
--- NOTE | 2025-04-18 10:27 | W.DCSUMMARY ---
Discharge Summary
Discharge Data
Date of Admission: 04/13/25
Date of Discharge: 04/18/25
-
Pending Results: No
Hospital Course
84yo F with PMHX of breast CA s/p R lumpectomy, HTN, SHAWN, DM. HLD, ASCVD came with fever, chills, vomiting and diarrhea, found campylobacter in stool, improved, also managed for hypoxia and CHF exacerbation, responded well to Lasix. DIarrhea
resolved after Azithromycin course. Not hypoxic on RA. PT recommended d/c home. Medcially stable for d/c. Amlodipine decreased upon d/c. New lasix instead of HCTZ and BMP in 1 week upon d/c. Outpatient MRCP and anemia w/u advised
I have spent at least 36min reviewing chart, test results and providing direct patient care
Patient was managed for:
#Possible sepsis on admission 2/2 Campylobacter enteritis
#Acute hypoxic respiratory insufficiency 2/2 Acute on chronic HFpEF exacerbation
#Pulmonary edema
#Hypovolemic hyponatremia
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
#Anemia
#EssentiaL HTN
#DM type 2 with unspecified complications
#moderate diffuse intrahepatic biliary dilatation, moderate gallbladder distention, and moderate extrahepatic biliary dilatation
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
#Diverticulosis w/o diverticulitis
#DJD
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
#ASCVD
Discharge Plan
-
Patient Disposition: Home with Home Care
Discharge Diagnosis/Procedures: Campylobacter pneumonia
Blood Work: BMP, Magnesium in 1 week with family doctor
Others Tests: MRCP advised - get order from family doctor
Referrals:
Nicolas St MD [Family Provider, Internal Medicine] - in less than 1 week
Referral Note: check BMP, Mg and provide MRCP order (dilated bile ducts)
Evie Adamson, [Active, Urology] - in two to four weeks
Referral Note: pelvic floor prolapse with a rectocele and small cystocele
Prescriptions:
New
amlodipine 5 mg Tablet
5 mg PO DAILY Qty: 30 0RF
furosemide 20 mg Tablet
20 mg PO DAILY Qty: 30 0RF
Continued
metformin 500 mg tablet
500 mg PO BID
atenolol 25 mg tablet
25 mg PO DAILY
meclizine 12.5 mg tablet
12.5 mg PO DAILY
aspirin 81 mg tablet,delayed release (DR/EC)
81 mg PO DAILY
magnesium oxide 400 mg (241.3 mg magnesium) tablet
400 mg PO DAILY
ferrous sulfate [FeroSul] 325 mg (65 mg iron) tablet
325 mg PO DAILY
doxazosin 2 mg tablet
2 mg PO DAILY
rosuvastatin 20 mg tablet
20 mg PO DAILY
mirabegron [Myrbetriq] 25 mg tablet extended release 24 hr
25 mg PO DAILY
Januvia 25 mg Tablet
25 mg PO DAILY
cholecalciferol (vitamin D3) 50 mcg (2,000 unit) capsule
50 mcg PO DAILY
Discontinued
amlodipine 10 mg tablet
10 mg PO DAILY
valsartan 320 mg tablet
320 mg PO DAILY
hydrochlorothiazide 12.5 mg capsule
12.5 mg PO DAILY
ibuprofen [IBU] 600 mg tablet
600 mg PO DAILY
Discharge Orders:
Discharge Patient (As Directed); Ordered 04/18/25
Ordered By: Thor Barger
Discharge Date and Time
Print Language: Moldovan
--- NOTE | 2025-04-18 10:53 | CM ---
Addendum entered by Carisa Webster 04/18/25 14:25:
Pt's daughter will transport pt home and paper script given so daughter can restart home care as requested with [facility]. Team aware pt will be for dc home with home care and no longer considering SNF.
Original Note:
CM spoke with daughter on phone to discuss home PT. Daughter confirms home care agency preference is [facility]. Daughter however expresses concern that pt is too weak to dc home without SNF first. Reviewed PT eval and recc from yesterday.
Explained that pt will need an auth for SNF. Updated team. Plan is to have PT re-eval and address stairs which daughter is stressing. There are 2 gia home and full flight to second floor.
[2025-04-18 12:08] LABS: Glucose - Point of Care 115 mg/dl (70-99)
[2025-04-18] MEDS: NOVOLOG FLEXPEN-LOW RESISTANCE SC (12:13)
[2025-04-18 12:51] VITALS: BP 186/76; PULSE 63; O2SAT 94
[2025-04-18 13:11] VITALS: BP 152/67
== END 2025-04-18 15:59 | disposition home health service (06) | DRG 371 ==
LOC: 4 EAST ACU 23:06
PROVIDERS: Internal Medicine; Registered Nurse; ADMITTING PHYSICIAN Hospitalist; ATTENDING PHYSICIAN Internal Medicine; EMERGENCY PHYSICIAN Emergency Medicine; FAMILY PHYSICIAN Internal Medicine
DX: A04.5 Campylobacter enteritis (principal); I50.33 Acute on chronic diastolic (congestive) heart failure; J18.9 Pneumonia, unspecified organism; E87.1 Hypo-osmolality and hyponatremia; N17.9 Acute kidney failure, unspecified; K52.9 Noninfective gastroenteritis and colitis, unspecified; E11.9 Type 2 diabetes mellitus without complications; Z11.52 Encounter for screening for COVID-19; E86.1 Hypovolemia; R09.02 Hypoxemia; R06.89 Other abnormalities of breathing; I11.0 Hypertensive heart disease with heart failure; E66.09 Other obesity due to excess calories; Z68.30 Body mass index [BMI] 30.0-30.9, adult; Z79.899 Other long term (current) drug therapy
CPT/HCPCS: 51701; 71045; 71046; 74177; 76700; 80048; 80053; 80076; 81003; 81015; 82248; 82962; 83036; 83605; 83690; 83880; 84100; 84300; 84443; 85025; 85027; 87040; 87045; 87046; 87077; 87324; 87427; 87449; 87502; 87798; 87811; 93005; 93306; 96361; 96365; 96375; 97116; 97162; 97166; 99285; Q9967